=== PATIENT | female | born 1960 | race Caucasian/White ===

== ENCOUNTER 2021-05-25 12:56 | Observation (INO) | payer OTHER ==
[2021-05-25 13:20] VITALS: BMI 20.3
[2021-05-25 14:03] LABS: BASO % 0.8 % (0-2.0); EOS % 1.1 % (0-4.5); HEMATOCRIT 36.5 % (32.4-45.2); HEMOGLOBIN 12.1 GM/dL (10.7-15.3); LYMPH % 26.9 % (8-40); MCH 31.5 pg (25.7-33.7); MCHC 33.1 g/dl (32.0-36.0); MEAN PLT VOLUME 7.7 fl (7.5-11.1); MONO % 8.4 % (3.8-10.2); NEUT % 62.8 % (42.8-82.8); PLATELET COUNT 216 10^3/uL (134-434); RBC 3.85 M/mm3 (3.60-5.2); RDW 14.6 % (11.6-15.6); WHITE BLOOD COUNT 3.4 K/mm3 (4.0-10.0)
[2021-05-25 14:30] LABS: CHLORIDE 106 mmol/L (98-107); SODIUM 142 mmol/L (136-145)
[2021-05-25 14:32] LABS: ALBUMIN 3.6 g/dl (3.4-5.0); ANION GAP 7 MMOL/L (8-16); CALCIUM 9.2 mg/dL (8.5-10.1); CO2 29 mmol/L (21-32); GLUCOSE,RANDOM 106 mg/dL (74-106); MAGNESIUM 2.1 mg/dL (1.8-2.4)
[2021-05-25 14:36] LABS: CREATININE 0.8 mg/dL (0.55-1.3); SGOT/AST 21 U/L (15-37); SGPT/ALT 33 U/L (13-61)
[2021-05-25 14:37] LABS: BILIRUBIN,TOTAL 0.8 mg/dL (0.2-1); TOT PROT 6.1 g/dl (6.4-8.2)
[2021-05-25 14:39] LABS: ALK PHOS 54 U/L (45-117)
[2021-05-25] MEDS: ENOXAPARIN NA (PORCINE) 40 MG/0.4 ML DISP.SYRIN SQ SCH (16:47)
[2021-05-25 16:59] LABS: CHOLESTEROL 120 mg/dL (50-200); TRIGLYCERIDES 46 mg/dL (0-150)
[2021-05-25 17:01] LABS: LDL CHOLESTEROL (ONLY SJRH) 50 mg/dL (5-100)
[2021-05-25 17:02] LABS: HDL CHOLESTEROL 64 mg/dL (40-60)
[2021-05-25 17:04] LABS: N-TERMINAL BNP 101.4 pg/ml (5-125)
[2021-05-25] MEDS ORDERED: ACETAMINOPHEN 325 MG TABLET (FP) PO PRN (18:12)
[2021-05-25] MEDS ORDERED: FLU VACC QS2021-22(6MOS UP)/PF 60 MCG/0.5 ML SYRINGE IM ONE (20:12)
[2021-05-26] MEDS ORDERED: PATIENT'S OWN MEDICATION (NON-FORMULARY) (Rizatriptan Benzoate [Rizatriptan] 10 MG Tablet) PO PRN (00:05)
[2021-05-26] MEDS: INSULIN SLIDING SCALE (NOVOLOG) 1 VIAL SQ SCH ×2 (06:10→12:01)
[2021-05-26 06:34] VITALS: PULSE 64
[2021-05-26 07:20] LABS: BASO % 0.5 % (0-2.0); EOS % 0.8 % (0-4.5); HEMATOCRIT 33.8 % (32.4-45.2); HEMOGLOBIN 11.4 GM/dL (10.7-15.3); MCH 31.8 pg (25.7-33.7); MCHC 33.6 g/dl (32.0-36.0); MEAN CELL VOLUME 94.8 fl (80-96); MEAN PLT VOLUME 7.6 fl (7.5-11.1); MONO % 8.1 % (3.8-10.2); NEUT % 74.6 % (42.8-82.8); PLATELET COUNT 194 10^3/uL (134-434); RBC 3.57 M/mm3 (3.60-5.2); RDW 14.7 % (11.6-15.6); WHITE BLOOD COUNT 4.4 K/mm3 (4.0-10.0)
[2021-05-26 07:40] LABS: ALBUMIN 3.1 g/dl (3.4-5.0); BLOOD UREA NITROGEN 14.6 mg/dL (7-18); CALCIUM 8.5 mg/dL (8.5-10.1)
[2021-05-26 07:43] LABS: CREATININE 0.7 mg/dL (0.55-1.3)
[2021-05-26 07:44] LABS: BILIRUBIN,TOTAL 0.8 mg/dL (0.2-1); TOT PROT 5.3 g/dl (6.4-8.2)
[2021-05-26 08:18] VITALS: BP 104/78; TEMP 98.3
[2021-05-26] MEDS: ENOXAPARIN NA (PORCINE) 40 MG/0.4 ML DISP.SYRIN SQ SCH (09:43)
[2021-05-26] MEDS ORDERED: MEBENDAZOLE PO SCH (10:00)
[2021-05-26] MEDS ORDERED: LORATADINE 10 MG TABLET PO SCH (10:00)
[2021-05-26] MEDS ORDERED: PANTOPRAZOLE 20 MG TABLET PO SCH (10:00)
[2021-05-26] MEDS ORDERED: MAGNESIUM OXIDE 400 MG TABLET (FP) PO SCH (22:00)
[2021-05-26] MEDS ORDERED: ATORVASTATIN CA 10 MG TABLET (FP) PO SCH (22:00)
== END 2021-05-26 15:00 | disposition home or self-care (01) ==
LOC: JER 12:56 → JERBED 16:13 → J4W 21:19
PROVIDERS: ADMIT Internal Medicine; ATTEND Internal Medicine
PROC: 3E023GC Introduction of Other Therapeutic Substance into Muscle, Percutaneous Approach (ICD-10-PCS; principal; 2021-05-25)
PROC: 3E0234Z Introduction of Serum, Toxoid and Vaccine into Muscle, Percutaneous Approach (ICD-10-PCS; 2021-05-25)
DX: E11.69 Type 2 diabetes mellitus with other specified complication (principal); R07.89 Other chest pain; U09.9 Post COVID-19 condition, unspecified; G62.89 Other specified polyneuropathies; E78.5 Hyperlipidemia, unspecified; G90.1 Familial dysautonomia [Riley-Day]; Z85.89 Personal history of malignant neoplasm of other organs and systems
CPT/HCPCS: 36415; 71046-TC-FY; 80053; 80061; 82550; 82962; 83036; 83735; 83880; 84443; 84484; 85025; 85379; 86140; 90686; 93005; 93010; 96372; 99285-25; C9803; G0378; U0003; U0005